=== PATIENT | female | born 1965 | race African-American/Black ===

== ENCOUNTER 2021-11-02 21:18 | Emergency (ER) | payer MEDICARE ==
[~2021-11-02] VITALS: Ht 165.1 cm; Wt 80.0 kg
[2021-11-02] MEDS ORDERED: KETOROLAC 30MG/ML VIAL IM STA (21:58)
[2021-11-02] MEDS ORDERED: DIAZEPAM 5 MG TABLET PO SCH (22:00)
[2021-11-02] MEDS ORDERED: ASPIRIN 81MG TABLET PO ONE (22:00)
[2021-11-02 23:43] LABS: BASOPHILS % 1.1 % (0.0-2.0); EOSINOPHILS % 2.1 % (0.0-5.0); HEMATOCRIT. 41.9 % (36.0-48.0); HEMOGLOBIN. 13.9 g/dL (12.0-16.0); MEAN CORPUSCULAR HEMOGLOBIN 29.2 pg (28.0-32.0); MEAN CORPUSCULAR VOLUME 87.9 fL (81.0-99.0); MEAN PLATELET VOLUME 10.2 fl (7.4-10.4); MONOCYTES % 6.9 % (2.0-8.0); NEUTROPHILS % 43.9 % (40.0-76.0); PLATELET 293 x1000/uL (130-400); RED BLOOD CELL COUNT 4.76 mill/uL (4.2-5.4); RED CELL DISTRIBUTION WIDTH 14.3 % (11.6-14.6)
[2021-11-02 23:52] LABS: CHLORIDE 106 mEq/L (98-107)
[2021-11-03] MEDS ORDERED: KETOROLAC 30MG/ML VIAL IM NR (00:15)
[2021-11-03] MEDS ORDERED: ASPIRIN 81MG TABLET PO NR (00:15)
[2021-11-03] MEDS ORDERED: IBUP-2029 MT (02:03)
[2021-11-03] MEDS ORDERED: LIDO700A30 TP (02:03)
[2021-11-03 03:00] VITALS: BP 138/89
== END 2021-11-03 03:20 | disposition home or self-care (01) ==
LOC: ER 21:18
DX: M62.830 Muscle spasm of back (principal); M54.6 Pain in thoracic spine
CPT/HCPCS: 36415; 71045; 80053; 83880; 84484; 85025; 93005; 96372; 99284; J1885